=== PATIENT | male | born 1985 | race Caucasian/White ===

== ENCOUNTER 2024-05-24 10:53 | Emergency (ER) | payer OTHER, BC ==
[~2024-05-24] VITALS: Ht 180.3 cm; Wt 128.8 kg
[~2024-05-24 10:53] MED LIST: CYCLOBENZAPRINE10 MG PO; IBUPROFEN800 MG PO; NEURONTIN300 MG PO
[2024-05-24] MEDS ORDERED: SODIUM CHLORIDE 0.9% 1,000 ML IV ONE (13:00)
[2024-05-24 13:36] LABS: BASOPHILS 1.2 % (0-2); EOSINOPHILS 4.6 % (0-6); HEMATOCRIT 47.3 % (35.0-50.0); HEMOGLOBIN 16.6 g/dL (12.0-18.0); LYMPHOCYTES 25.7 % (24-44); MCH 32.7 (27-36); MCV 93.4 fl (81-99); MONOCYTES 8.7 % (0-12); NEUTROPHILS 59.8 % (39-80); PLATELET COUNT 184 K/uL (140-440); RBC 5.07 M/ul (4.3-5.7); RDW 13.3 (10.5-15.0)
[2024-05-24 13:51] LABS: ALBUMIN 3.6 g/dL (3.4-5.0); ALBUMIN/GLOBULIN RATIO 0.88 (1.1-2.4); ANION GAP 17.8 (7-21); BUN/CREATININE RATIO 12.72 (6.0-28.6); CALCIUM 8.5 mg/dL (8.5-10.1); CREATININE, SERUM 1.1 mg/dL (0.70-1.30); POTASSIUM 3.8 mmol/L (3.5-5.1); PROTEIN, TOTAL 7.7 g/dL (6.4-8.2)
[2024-05-24 14:13] LABS: BILIRUBIN, URINE POSITIVE (negative); BLOOD/HGB, URINE NEGATIVE (Negative); KETONE, URINE SMALL (Negative); LEUK ESTERASE, URINE NEGATIVE (negative); NITRITE, URINE NEGATIVE (negative)
[2024-05-24] MEDS ORDERED: ondansetron HCL 4 MG/2 ML VIAL IV ONE (14:30)
[2024-05-24 15:24] VITALS: BP 140/82
== END 2024-05-24 15:24 | disposition home or self-care (01) ==
LOC: ED 10:53
PROVIDERS: Emergency Medicine
DX: R10.9 Unspecified abdominal pain (principal); I10 Essential (primary) hypertension; F17.200 Nicotine dependence, unspecified, uncomplicated
CPT/HCPCS: 36415; 74176; 80053; 81003; 83690; 85025; 96374; 99284-25; J2405; J7030